=== PATIENT | female | born 1980 | race Caucasian/White ===

== ENCOUNTER 2019-01-25 17:15 | Emergency (ER) | payer MEDICAID ==
[~2019-01-25] VITALS: Ht 154.9 cm; Wt 63.0 kg
[2019-01-25 17:24] VITALS: BP 119/62; PULSE 66; RESP 16; Ht 154.9 cm; Wt 63.0 kg
--- NOTE | 2019-01-25 17:45 | EN ---
Date/Time of Note Date/Time of Note DATE: 01/25/19 TIME: 17:45 ER Progress Note [id number]-old female with right middle finger crush injury yesterday. She is some oozing from the subungual hematoma. Tetanus is not up-to-date. X-ray ordered from ER waiting room. Recommend tetanus. ED 2 appropriate. TEREZA NAVARRO MD Jan 25, 2019 17:45
[2019-01-25] MEDS ORDERED: IBUPROFEN 600 MG TAB PO ONE (18:30)
[2019-01-25] MEDS ORDERED: LIDOCAINE 1% (MDV) 10 ML INJ INJ STA (19:12)
--- NOTE | 2019-01-25 19:12 | ERD ---
ER Documentation Chief Complaint Chief Complaint rt middle finger injury HPI 38-year-old female presenting after an injury to her right middle finger while at work. 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 Her nail partially came off and she pushed it back into place. She is complaining of throbbing, 9 out of 10 pain in her distal tip of her finger. She also has some minor pain in her fourth digit of the same hand. She denies any numbness or tingling. She did not have any significant bleeding. ROS All systems reviewed and are negative except as per history of present illness. Medications Home Meds Active Scripts Ibuprofen* (Motrin*) 600 Mg Tab, 600 MG PO Q6H PRN for PAIN AND OR ELEVATED TEMP, #30 TAB Prov:AREN WATTERS MD 01/25/19 Cephalexin* (Keflex*) 500 Mg Capsule, 500 MG PO QID for 5 Days, CAP Prov:AREN WATTERS MD 01/25/19 Allergies Allergies: Coded Allergies: No Known Drug Allergy (Verified Allergy, Unknown, 11/17/08) PMhx/Soc Medical and Surgical Hx: pt denies Medical Hx, pt denies Surgical Hx Hx Alcohol Use: No Hx Substance Use: No Hx Tobacco Use: No Smoking Status: Never smoker FmHx Family History: No diabetes Physical Exam Vitals Vital Signs Date Temp Pulse Resp B/P (MAP) Pulse Ox O2 O2 Flow FiO2 Time Delivery Rate 01/25/19 97.8 66 16 119/62 100 17:24 (81) Physical Exam INITIAL VITAL SIGNS: Reviewed by me GENERAL: Well appearing, non toxic, speaking in full sentences. HEENT: Atraumatic, Moist mucous membranes NECK: Supple. RESPIRATORY: No respiratory distress. EXTREMITIES: No clubbing or cyanosis. No edema. Right hand exam shows a partially avulsed fingernail of the third digit with a subungual hematoma, approximately 50%. There is some mild swelling of the fingertip with no active bleeding. Tendon function is intact. All other fingers and the rest of the right upper extremity is normal to inspection and palpation with no evidence of other injuries. 2+ radial pulse. SKIN: Warm, dry. NEUROLOGIC: Alert and awake. No facial asymmetry. Normal speech. Results 24 hrs Current Medications Medications Dose Sig/Dayami Start Time Status Last (Trade) Ordered Route PRN Stop Time Admin Dose Reason Admin Ibuprofen 600 mg ONCE ONCE 01/25/19 DC 01/25/19 (Motrin) PO 18:30 18:41 01/25/19 18:31 Diphtheria/ 0.5 ml ONCE ONCE 01/25/19 DC 01/25/19 Tetanus/Acell IM* 19:30 19:21 Pertussis 01/25/19 19:31 (Adacel) Lidocaine 10 ml ONCE STAT 01/25/19 DC HCl INJ 19:12 (Lidocaine 01/25/19 19:15 1% (Mdv) 10 ml) Procedures/MDM Imaging reviewed by me and read by radiology: X-ray right hand shows a comminuted tuft fracture of the middle finger Laceration Repair by me: Anesthesia: 1% lidocaine. digital block performed Location: Right middle finger nailbed Tendon/Joint/Nerves: No injury Foreign body: None detected after copious irrigation and exploration Technique: The nail that was partially avulsed was carefully removed from the nailbed. The laceration of the nailbed was irrigated with normal saline. Simple Interrupted absorbable sutures were used to repair nailbed laceration. The nail was then replaced and a suture was placed to secure the fingernail onto the nailbed. Complexity: Complex repair as described above Post Closure Length: 0.5cm Patient's bleeding was easily controlled in the department and there is no indication of anemia. No evidence of compartment syndrome, neurologic injury, vascular injury, open joint, tendon laceration, or foreign body. Patient is appropriate for outpatient follow up. 48 hour wound check. Scar minimization instructions given. Given her underlying tuft fracture, a finger splint was placed and patient will be started on outpatient oral prophylactic antibiotics due to a technically open fracture. Tetanus vaccine was updated. Patient encouraged to return for any signs of infection or any other concerns. I explained to patient and family that there is a possibility that she will have a nailbed deformity and It is also possible that her nail will not grow back or it will grow back in a deformed condition. Patient and family understand. Prescription for Keflex and ibuprofen given prior to discharge. Departure Diagnosis: Primary Impression: Crushing injury of finger of right hand Additional Impressions: Nailbed laceration, finger Encounter type: initial encounter Qualified Codes: S61.319A - Laceration without foreign body of unspecified finger with damage to nail, initial encounter Open fracture of tuft of distal phalanx of finger Condition: Stable AREN WATTERS MD Jan 25, 2019 19:12
[2019-01-25] MEDS ORDERED: DIPHTH/TET/ACEL PERTUSS (ADULT) 0.5 ML VIAL IM* ONE (19:30)
[2019-01-25] MEDS ORDERED: CEPH-443 PO (20:23)
[2019-01-25] MEDS ORDERED: IBUP-1542 PO (20:23)
== END 2019-01-25 20:32 | disposition home or self-care (01) ==
LOC: FTE 17:15
DX: S62.632B Displaced fracture of distal phalanx of right middle finger, initial encounter for open fracture (principal); W26.8XXA Contact with other sharp object(s), not elsewhere classified, initial encounter; Y92.9 Unspecified place or not applicable; Z23 Encounter for immunization
CPT/HCPCS: 12001; 73140; 90471; 90715; Z7502; Z7610

== ENCOUNTER 2019-01-28 15:34 | Emergency (ER) | payer MEDICAID ==
[~2019-01-28] VITALS: Wt 61.0 kg
[~2019-01-28 15:34] MED LIST: CEPH-443 PO; IBUP-1542 PO
[2019-01-28 15:44] VITALS: BP 104/57; PULSE 71; RESP 18
--- NOTE | 2019-01-28 16:30 | ERD ---
ER Documentation Chief Complaint Chief Complaint RECHECK OF LAC TOR 3RD FINGER HPI 38-year-old female, right-handed, presents to the emergency department, for wound check. The patient sustained a laceration of the right third finger 3 days ago while the patient was at work. The patient underwent laceration repaired here at this hospital. She refers feeling better, no pain, no fever or chills, no distal weakness numbness or tingling. ROS All systems reviewed and are negative except as per history of present illness. Medications Home Meds Active Scripts Ibuprofen* (Motrin*) 600 Mg Tab, 600 MG PO Q6H PRN for PAIN AND OR ELEVATED TEMP, #30 TAB Prov:AREN WATTERS MD 01/25/19 Cephalexin* (Keflex*) 500 Mg Capsule, 500 MG PO QID for 5 Days, CAP Prov:AREN WATTERS MD 01/25/19 Allergies Allergies: Coded Allergies: No Known Drug Allergy (Verified Allergy, Unknown, 11/17/08) PMhx/Soc Hx Alcohol Use: No Hx Substance Use: No Hx Tobacco Use: No FmHx Family History: No diabetes Physical Exam Vitals Vital Signs Date Temp Pulse Resp B/P (MAP) Pulse Ox O2 O2 Flow FiO2 Time Delivery Rate 01/28/19 98.0 71 18 104/57 99 15:44 (73) Physical Exam Const: No acute distress Head: Atraumatic Eyes: Normal Conjunctiva ENT: Normal External Ears, Nose and Mouth. Neck: Full range of motion. No meningismus. Resp: Clear to auscultation bilaterally Cardio: Regular rate and rhythm, no murmurs Abd: Soft, non tender, non distended. Normal bowel sounds Skin: No petechiae or rashes Back: No midline or flank tenderness Ext: Right hand: Third digit: Incision clean, dry and intact, adequate distal capillary refill. No cyanosis, or edema Neur: Awake and alert Psych: Normal Mood and Affect Procedures/MDM Status post laceration repair 2 days ago. Adequate pain control, no fever, no chills, good compliance with medications no side effects. The patient was evaluated for infection and neurovascular compromise. The wound was clean and irrigated with normal saline and dressing applied. Patient is stable, with adequate healing process, okay to discharge home, medication adherence reinforced. some side effects of prescribed medications (headache, rash, nausea, vomiting, diarrhea, drowsiness, habituation, bleeding, hypertension, interactions with other medications) were reviewed. The patient was instructed to follow up with the primary care provider in the next 48h. If symptoms persist, worsen or new symptoms develop, then patient should return to the ED immediately. Instructions explained and given directly by me to the patient with acknowledgment and demonstrated understanding. Disclaimer: Inadvertent spelling and grammatical errors are likely due to EHR/dictation software use and do not reflect on the overall quality of patient care. Also, please note that the electronic time recorded on this note does not necessarily reflect the actual time of the patient encounter. Departure Diagnosis: Primary Impression: Encounter for wound re-check Condition: Stable Patient Instructions: Wound Check, Lac F/U (No Infection) Additional Instructions: Muchas anna por [facility] para loo servicio. Esperamos que en loo visita a la jason de emergencia loo problema medico haya sido solucionado y que se sienta mucho mejor. Para estar seguros que loo mejoria sigue en proceso, le pedimos el favor de hacer giovanna ama de seguimiento medico con loo doctor primario en los proximos 2-4 mares. Lleve con usted estos documentos y las medicinas recetadas. Si marianne sintomas empeoran, NO SE ESPERE, por favor regrese a jason de emergencia INMEDIATAMENTE. En betzaida que usted no tenga un mdico de atencin primaria: Llame al mdico o clnica comunitaria de referencia que aparece abajo will las horas de consultorio para hacer giovanna ama para que le vean. CLINICAS: [facility] [phone] [facility] [phone] [facility] [phone] [facility] 962 [phone] [facility] [phone] [facility] [phone] SAL RAY MD Jan 28, 2019 16:30
== END 2019-01-28 16:31 | disposition home or self-care (01) ==
LOC: E/R 15:34
DX: Z48.01 Encounter for change or removal of surgical wound dressing (principal)
CPT/HCPCS: 99281

== ENCOUNTER 2019-05-10 18:07 | Emergency (ER) | payer MEDICAID ==
[~2019-05-10] VITALS: Ht 157.5 cm; Wt 75.0 kg
[~2019-05-10 18:07] MED LIST changes: +NEOM28OI2 TP
[2019-05-10 18:10] VITALS: BP 115/56; PULSE 56; RESP 18; Ht 157.5 cm; Wt 75.0 kg
== END 2019-05-10 18:16 | disposition home or self-care (01) ==
LOC: E/R 18:07
DX: S67.91XA Crushing injury of unspecified part(s) of right wrist, hand and fingers, initial encounter (principal); X58.XXXA Exposure to other specified factors, initial encounter; Y92.9 Unspecified place or not applicable
CPT/HCPCS: 99282